=== PATIENT | female | born 1935 ===

== ENCOUNTER 2020-02-03 08:30 | Inpatient (IN) | payer OTHER ==
[~2020-02-03] VITALS: Ht 154.9 cm; Wt 70.3 kg
== END 2020-02-10 16:00 | DRG 470 ==
LOC: O/R 02-08 06:30 → SURH 02-08 07:00 → O/R 02-08 08:30 → SURG 02-08 10:57
PROVIDERS: ADMIT Orthopaedic Surgery Sports Medicine; ATTEND Orthopaedic Surgery Sports Medicine
PROC: 0SRC0J9 Replacement of Right Knee Joint with Synthetic Substitute, Cemented, Open Approach (ICD-10-PCS; principal; 2020-02-08)
DX: M17.11 Unilateral primary osteoarthritis, right knee (principal); E11.9 Type 2 diabetes mellitus without complications; E03.9 Hypothyroidism, unspecified; I12.9 Hypertensive chronic kidney disease with stage 1 through stage 4 chronic kidney disease, or unspecified chronic kidney disease; N18.9 Chronic kidney disease, unspecified